=== PATIENT | male | born 2000 | race Caucasian/White ===

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

== ENCOUNTER 2022-11-22 09:50 | Emergency (ER) | payer MEDICAID ==
[2022-11-22] MEDS ORDERED: Sodium Chloride 0.9% 1000 ML 1,000 ML IV STA (10:17)
[2022-11-22] MEDS ORDERED: MORPHINE SULFATE 4 MG INJ IV ONE (10:17)
[2022-11-22] MEDS ORDERED: BENADRYL 50 MG/ML IV ONE (10:17)
[2022-11-22] MEDS ORDERED: MORPHINE SULFATE 4 MG INJ ONE ×2 (10:25→11:26)
[2022-11-22] MEDS ORDERED: BENADRYL 50 MG/ML ONE (10:25)
[2022-11-22] MEDS ORDERED: Sodium Chloride 0.9% 1000 ML 1,000 ML ONE (10:25)
[2022-11-22 10:29] LABS: Absolute Neutrophil Ct (ANC) 7.12 x10^3/uL (1.4-6.9); BASOPHIL % 0.5 % (0.0-0.4); Basophil (Absolute #) 0.05 x10^3/uL (0-0.4); Eosinophil % 2.2 % (0.00-5.0); Eosinophil (Absolute #) 0.23 x10^3/uL (0-0.5); Hematocrit 47.4 % (42-50); IMMATURE GRAN # 0.03 x10^3u/L (0.00-0.03); IMMATURE GRAN % 0.3 % (0.00-0.4); Lymphocyte (Absolute #) 2.18 x10^3/uL (1.0-4.6); Mean Cell Volume 88.6 fL (78-100); Mean Corpuscular Hemoglobin 29.9 pg (26-32); Mean Corpuscular Hgb Concent. 33.8 g/dL (32-36); Mean Platelet Volume 10.4 fL (7.5-11.0); Monocyte (Absolute #) 0.75 x10^3/uL (0.0-1.3); Monocytes % 7.2 % (0.0-12.0); Neutrophil % 68.8 % (36.0-66.0); Platelet Count 265 x10^3/uL (150-450); Red Blood Count 5.35 x10^6/uL (4.1-5.6); Red Cell Distribution Width 12.4 % (11.5-14.0); White Blood Count 10.4 x10^3/uL (4.0-10.5)
--- NOTE | 2022-11-22 10:32 | ERPHSYRPT ---
- History of Present Illness Time Seen by Provider: 11/22/22 09:52 Source: patient Exam Limitations: no limitations Patient Subjective Stated Complaint: Pt c/o of medial upper epi- gastric/abdominal pain that began 2 days ago with vomiting and diarrhea Triage Nursing Assessment: Pt brought to the ER by his mother, tachycardic, rates pain as 5/10, N&V, diarrhea, denies blood in stool, nausea today but unable to vomit, pulses normal, skin pale and warm and diaphoretic at times Physician History: Patient is here with abdominal pain. 2 days. Patient states radiating throughout. No falls or other trauma. Patient not on any medication. No history of previous abdominal surgeries, patient still has gallbladder, appe ndix. Timing/Duration: yesterday Severity: moderate Modifying Factors: Improves With: other Associated Symptoms: vomiting Allergies/Adverse Reactions: No Known Drug Allergies Allergy (Verified 11/22/22 10:25) Hx Tetanus, Diphtheria Vaccination/Date Given: Yes Hx Influenza Vaccination/Date Given: No Hx Pneumococcal Vaccination/Date Given: No Travel Risk - International Travel Have you traveled outside of the country in past 3 weeks: No - Coronavirus Screening Are you exhibiting any of the following symptoms?: Yes Symptoms: Vomiting/Diarrhea Close contact with a COVID-19 positive Pt in past 14-21 Days: No - Vaccine Status Have you recieved a Covid-19 vaccination: No - Review of Systems Constitutional: No Fever, No Chills Eyes: No Symptoms Ears, Nose, & Throat: No Symptoms Respiratory: No Cough, No Dyspnea Cardiac: No Chest Pain, No Edema, No Syncope Abdominal/Gastrointestinal: Abdominal Pain, Nausea, Vomiting, Diarrhea Genitourinary Symptoms: No Dysuria Musculoskeletal: No Back Pain, No Neck Pain Skin: No Rash Neurological: No Dizziness, No Focal Weakness, No Sensory Changes Psychological: No Symptoms Endocrine: No Symptoms All Other Systems: Reviewed and Negative - Past Medical History Pertinent Past Medical History: Yes Neurological History: Other Cardiac History: Other Respiratory History: No Pertinent History Endocrine Medical History: No Pertinent History Musculoskeletal History: No Pertinent History GI Medical History: GERD Other Medical History: concussions playing sports, 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 - Past Surgical History Past Surgical History: Yes Musculoskeletal: Orthopedic Surgery - Social History Smoking Status: Never smoker Exposure to second hand smoke: Yes Drug Use: none Patient Lives Alone: No - Nursing Vital Signs Nursing Vital Signs: Initial Vital Signs Temperature 97.3 F 11/22/22 09:54 Pulse Rate 104 H 11/22/22 09:54 Blood Pressure 129/80 11/22/22 09:54 O2 Sat by Pulse Oximetry 97 11/22/22 09:54 Pain Scale Pain Intensity 0 - Physical Exam General Appearance: no apparent distress, alert Eye Exam: PERRL/EOMI, eyes nml inspection Ears, Nose, Throat Exam: normal ENT inspection, TMs normal, pharynx normal, moist mucous membranes Neck Exam: normal inspection, non-tender, supple, full range of motion Respiratory Exam: normal breath sounds, lungs clear, No respiratory distress Cardiovascular Exam: regular rate/rhythm, normal heart sounds, normal peripheral pulses Gastrointestinal/Abdomen Exam: soft, normal bowel sounds, tenderness (Mild abdominal tenderness throughout. No rebound no guarding. ), other, No mass Back Exam: normal inspection, normal range of motion, No CVA tenderness, No vertebral tenderness Extremity Exam: normal inspection, normal range of motion, pelvis stable Neurologic Exam: alert, oriented x 3, cooperative, normal mood/affect, nml cerebellar function, nml station & gait, sensation nml, No motor deficits Skin Exam: normal color, warm, dry, No rash Lymphatic Exam: No adenopathy SpO2: 97 - Course Nursing assessment & vital signs reviewed: Yes Ordered Tests: Active Orders 24 hr Category Date Time Status IV Insertion STAT Care 11/22/22 10:17 Completed ABDOMEN AND PELVIS W CONTRAST [CT] Stat Exams 11/22/22 10:19 Completed CHEST 1 VIEW (PORTABLE) Stat Exams 11/22/22 10:18 Completed CBC W DIFF Stat Lab 11/22/22 10:23 Completed CMP Stat Lab 11/22/22 10:23 Completed CULTURE,URINE Stat Lab 11/22/22 10:28 Received LIPASE Stat Lab 11/22/22 10:23 Completed UA W/RFX UR CULTURE Stat Lab 11/22/22 10:28 Completed Medication Summary Discontinued Medications Generic Name Dose Route Start Last Admin Trade Name Freq PRN Reason Stop Dose Admin Diphenhydramine HCl 25 mg 11/22/22 10:17 11/22/22 11:21 Diphenhydramine Hcl 50 Mg/Ml Vial IV 11/22/22 10:18 25 mg STAT ONE Administration Diphenhydramine HCl Confirm 11/22/22 10:25 Diphenhydramine Hcl 50 Mg/Ml Vial Administered 11/22/22 10:26 Dose 50 mg .ROUTE .STK-MED ONE Droperidol 1.25 mg 11/22/22 10:17 11/22/22 11:22 Droperidol 5 Mg/2 Ml Vial IV 11/22/22 10:18 1.25 mg STAT ONE Administration Droperidol Confirm 11/22/22 10:25 Droperidol 5 Mg/2 Ml Vial Administered 11/22/22 10:26 Dose 5 mg .ROUTE .STK-MED ONE Sodium Chloride 1,000 mls @ 999 mls/hr 11/22/22 10:17 11/22/22 12:31 Sodium Chloride 0.9% 1000 Ml IV 11/22/22 11:17 Infused .Q1H1M STA Infusion Sodium Chloride Confirm 11/22/22 10:25 Sodium Chloride 0.9% 1000 Ml Administered 11/22/22 10:26 Dose 1,000 mls @ ud .ROUTE .STK-MED ONE Morphine Sulfate 4 mg 11/22/22 10:17 11/22/22 11:24 Morphine Sulfate 4 Mg/Ml Injection IV 11/22/22 10:18 4 mg STAT ONE Administration Morphine Sulfate Confirm 11/22/22 10:25 Morphine Sulfate 4 Mg/Ml Injection Administered 11/22/22 10:26 Dose 4 mg .ROUTE .STK-MED ONE Morphine Sulfate Confirm 11/22/22 11:26 Morphine Sulfate 4 Mg/Ml Injection Administered 11/22/22 11:27 Dose 4 mg .ROUTE .STK-MED ONE Lab/Rad Data: Laboratory Result Diagrams 11/22/22 10:23 11/22/22 10:23 Laboratory Results 11/22/22 11/22/22 11/22/22 Range/Units Unknown 10:28 10: WBC (4.0-10.5) x10^3/uL RBC (4.1-5.6) x10^6/uL Hgb (12.5-18.0) g/dL Hct (42-50) % MCV (78-100) fL MCH (26-32) pg MCHC (32-36) g/dL RDW (11.5-14.0) % Plt Count (150-450) x10^3/uL MPV (7.5-11.0) fL Gran % (36.0-66.0) % Immature Gran % (Auto) (0.00-0.4) % Nucleat RBC Rel Count (0.00-0.1) % Eos # (Auto) (0-0.5) x10^3/uL Immature Gran # (Auto) (0.00-0.03) x10^3u/L Absolute Lymphs (auto) (1.0-4.6) x10^3/uL Absolute Monos (auto) (0.0-1.3) x10^3/uL Absolute Nucleated RBC (0.00-0.01) x10^3u/L Lymphocytes % (24.0-44.0) % Monocytes % (0.0-12.0) % Eosinophils % (0.00-5.0) % Basophils % (0.0-0.4) % Absolute Granulocytes (1.4-6.9) x10^3/uL Basophils # (0-0.4) x10^3/uL Sodium 142 (137-145) mmol/L Potassium 4.5 (3.5-5.1) mmol/L Chloride 106 (98-107) mmol/L Carbon Dioxide 21 L (22-30) mmol/L Anion Gap 18.8 H (5-15) MEQ/L BUN 12 (9-20) mg/dL Creatinine 1.02 (0.66-1.25) mg/dL Estimated GFR > 60.0 ML/MIN Glucose 111 H (74-106) mg/dL Calcium 9.7 (8.4-10.2) mg/dL Total Bilirubin 0.50 (0.2-1.3) mg/dL AST 27 (17-59) U/L ALT 22 (0-50) U/L Alkaline Phosphatase 84 (38-126) U/L Serum Total Protein 8.7 H (6.3-8.2) g/dL Albumin 5.3 H (3.5-5.0) g/dL Lipase 71 (23-300) U/L Urine Color Dark Yellow (Yellow) Urine Appearance Cloudy A (Clear) Urine pH 5.0 (4.6-8.0) Ur Specific Reading >=1.030 A (1.005-1.030) Urine Protein 30 (Negative) Urine Glucose (UA) Negative (Negative) mg/dL Urine Ketones Trace A (Negative) Urine Blood Negative (Negative) Urine Nitrite Negative (Negative) Urine Bilirubin Negative (Negative) Urine Urobilinogen 1.0 A (0.2) mg/dL Ur Leukocyte Esterase Negative (Negative) U Hyaline Cast (Auto) NONE SEEN (0-2) /LPF Urine Microscopic RBC 0-2 (0-5) /HPF Urine Microscopic WBC 3-5 (0-5) /HPF Ur Epithelial Cells None Seen (None Seen) /HPF Amorphous Crystals Few A (None Seen) /HPF Urine Bacteria Moderate A (None Seen) /HPF Urine Culture Reflexed YES (NO) Influenza Type A Ag NEGATIVE (NEGATIVE) Influenza Type B Ag NEGATIVE (NEGATIVE) RSV (PCR) NEGATIVE (Negative) SARS-CoV-2 (PCR) NEGATIVE (NEGATIVE) Group A Strep Antibody NOT DETECTED (NEGATIVE) 11/22/22 Range/Units 10:23 WBC 10.4 (4.0-10.5) x10^3/uL RBC 5.35 (4.1-5.6) x10^6/uL Hgb 16.0 (12.5-18.0) g/dL Hct 47.4 (42-50) % MCV 88.6 (78-100) fL MCH 29.9 (26-32) pg MCHC 33.8 (32-36) g/dL RDW 12.4 (11.5-14.0) % Plt Count 265 (150-450) x10^3/uL MPV 10.4 (7.5-11.0) fL Gran % 68.8 H (36.0-66.0) % Immature Gran % (Auto) 0.3 (0.00-0.4) % Nucleat RBC Rel Count 0.0 (0.00-0.1) % Eos # (Auto) 0.23 (0-0.5) x10^3/uL Immature Gran # (Auto) 0.03 (0.00-0.03) x10^3u/L Absolute Lymphs (auto) 2.18 (1.0-4.6) x10^3/uL Absolute Monos (auto) 0.75 (0.0-1.3) x10^3/uL Absolute Nucleated RBC 0.00 (0.00-0.01) x10^3u/L Lymphocytes % 21.0 L (24.0-44.0) % Monocytes % 7.2 (0.0-12.0) % Eosinophils % 2.2 (0.00-5.0) % Basophils % 0.5 (0.0-0.4) % Absolute Granulocytes 7.12 H (1.4-6.9) x10^3/uL Basophils # 0.05 (0-0.4) x10^3/uL Sodium (137-145) mmol/L Potassium (3.5-5.1) mmol/L Chloride (98-107) mmol/L Carbon Dioxide (22-30) mmol/L Anion Gap (5-15) MEQ/L BUN (9-20) mg/dL Creatinine (0.66-1.25) mg/dL Estimated GFR ML/MIN Glucose (74-106) mg/dL Calcium (8.4-10.2) mg/dL Total Bilirubin (0.2-1.3) mg/dL AST (17-59) U/L ALT (0-50) U/L Alkaline Phosphatase (38-126) U/L Serum Total Protein (6.3-8.2) g/dL Albumin (3.5-5.0) g/dL Lipase (23-300) U/L Urine Color (Yellow) Urine Appearance (Clear) Urine pH (4.6-8.0) Ur Specific Reading (1.005-1.030) Urine Protein (Negative) Urine Glucose (UA) (Negative) mg/dL Urine Ketones (Negative) Urine Blood (Negative) Urine Nitrite (Negative) Urine Bilirubin (Negative) Urine Urobilinogen (0.2) mg/dL Ur Leukocyte Esterase (Negative) U Hyaline Cast (Auto) (0-2) /LPF Urine Microscopic RBC (0-5) /HPF Urine Microscopic WBC (0-5) /HPF Ur Epithelial Cells (None Seen) /HPF Amorphous Crystals (None Seen) /HPF Urine Bacteria (None Seen) /HPF Urine Culture Reflexed (NO) Influenza Type A Ag (NEGATIVE) Influenza Type B Ag (NEGATIVE) RSV (PCR) (Negative) SARS-CoV-2 (PCR) (NEGATIVE) Group A Strep Antibody (NEGATIVE) - Progress Progress: improved Progress Note: 11/22/22 10:32 differential diagnosis includes kidney stone, compression fracture, infection, UTI, triple AAA - basic labs including: CBC, lipase, CMP, UA, flu, COVID, RSV, strep - insert IV for fluids, pain meds, nausea control - consider imaging: CT ab/pelvis 11/22/22 14:32 CT shows most likely gastroenteritis. UA also shows some bacteria. However no leukocytes or nitrates. Will treat with Keflex and send a urine culture. Patient's pain completely resolved on reexam. Will need close follow-up with PCP. Return here for new or changing symptoms. Counseled pt/family regarding: lab results, diagnosis, need for follow-up, rad results Medical Desision Making - Diagnostic Testing Diagnostic Testing (additional info): Diagnostic tests were ordered,analyzed, and reviewed by me and used in my medical decision making for this patient. Radiologic studies (if ordered) were read by me initially then discussed with the radiologist . - Departure Departure Disposition: Home Clinical Impression: Bacteria in urine, Nausea and vomiting Condition: Stable Critical Care Time: No Referrals: SVITLANA CYR [Primary Care Provider] - Follow up/PCP as directed Instructions: Severe Abdominal Pain, Adult (DC) Prescriptions: Ondansetron ODT 4 MG [Zofran Odt 4 mg] 4 mg PO Q6H PRN PRN #10 tablet PRN Reason: Vomiting Cephalexin Mh 500 mg [Keflex 500 mg] 500 mg PO BID #20 cap
--- NOTE | 2022-11-22 10:37 | XRAY ---
Indication: Epigastric pain. Comparison: October 24, 2021 Portable chest demonstrates clearing previous bilateral airspace disease with now minimal left base fibrosis/scarring. Heart not enlarged. Bony thorax intact. No acute findings.
[2022-11-22 10:45] LABS: ALBUMIN 5.3 g/dL (3.5-5.0); ALKALINE PHOSPHATASE 84 U/L (38-126); ANION GAP 18.8 MEQ/L (5-15); BLOOD UREA NITROGEN 12 mg/dL (9-20); CHLORIDE 106 mmol/L (98-107); Calcium 9.7 mg/dL (8.4-10.2); Carbon Dioxide 21 mmol/L (22-30); Creatinine 1 1.02 mg/dL (0.66-1.25); EST GLOMERULAR FILTRATION RATE > 60.0 ML/MIN; Glucose 111 mg/dL (74-106); LIPASE 71 U/L (23-300); Potassium 4.5 mmol/L (3.5-5.1); SGOT/AST 27 U/L (17-59); SGPT/ALT 22 U/L (0-50); SODIUM 142 mmol/L (137-145); Total Protein 8.7 g/dL (6.3-8.2)
--- NOTE | 2022-11-22 11:32 | XRAY ---
Indication: Epigastric pain. Nausea and vomiting. Multiple contiguous axial images obtained through the abdomen and pelvis using 80 cc Isovue 370 contrast. Comparison: None Lung bases demonstrate mild dependent atelectasis at heart is not enlarged. Stomach, small bowel bowel, and colon are mild/moderate fluid distended throughout with fluid leveling, ileus versus gastroenterocolitis. No free fluid/air. Remaining liver, gallbladder, pancreas, spleen, adrenal glands, kidneys, ureters, bladder, and aorta are unremarkable. No pathologic retroperitoneal lymphadenopathy. Osseous structures intact with minimal levoscoliosis centered at L3. Impression: Fluid distended stomach, small bowel, and colon with fluid leveling. Rule out ileus versus gastroenterocolitis.
[2022-11-22 11:42] LABS: Appearance Cloudy (Clear); Bilirubin Negative (Negative); Blood Negative (Negative); Epithelial Cells None Seen /HPF (None Seen); Glucose, Urine Negative (Negative); Ketones Trace (Negative); Leukocyte Esterase Negative (Negative); Nitrite Negative (Negative); Protein,Urine Dip 30 (Negative); RBC 0-2 /HPF (0-5); Specific Gravity >=1.030 (1.005-1.030)
[2022-11-22 11:47] LABS: Bacteria Moderate /HPF (None Seen)
[2022-11-22 11:48] LABS: ADD URINE CULTURE? YES (NO); Amourphous Crystal Few /HPF (None Seen); Hyaline Casts NONE SEEN /LPF (0-2)
[2022-11-22 12:31] VITALS: PULSE 67
[2022-11-22 12:38] LABS: Group A Strep NOT DETECTED (NEGATIVE)
[2022-11-22 12:49] LABS: INFLUENZA A NEGATIVE (NEGATIVE); INFLUENZA B NEGATIVE (NEGATIVE); RESPIRATORY SYNCTIAL VIRUS NEGATIVE (Negative); SARS-CoV-2 Xpert Express NEGATIVE (NEGATIVE)
[2022-11-22 13:04] VITALS: O2SAT 97
[2022-11-22 13:09] VITALS: BP 121/72
== END 2022-11-22 13:13 | disposition home or self-care (01) ==
LOC: ED 09:50
DX: R11.2 Nausea with vomiting, unspecified (principal); R82.71 Bacteriuria; R10.9 Unspecified abdominal pain; Z28.310 Unvaccinated for COVID-19
CPT/HCPCS: 0241U; 36415; 71045; 74177; 80053; 81001; 83690; 85025; 87086; 87651; 96360; 96374; 96375; 99284; J1200; J2270

== ENCOUNTER 2023-07-13 16:51 | Emergency (ER) | payer OTHER ==
--- NOTE | 2023-07-13 16:56 | ERPHSYRPT ---
- History of Present Illness Time Seen by Provider: 07/13/23 16:56 Source: patient, family Exam Limitations: no limitations Physician History: pt caught right index tip between object and wood splitter with minor abrasion but tiny subungual heme - not suitable for drainage. and tender distal phalanx. no other complaint of injury. N/V intact. tendon fxn flex/ext distal and prox phalanges intact. tender distal phalanx. Discussed risks/benefits of x-ray and toradol and t dap update with pt and family and they wish to proceed. these are ordered; results later discussed. family is present and served as independent source for interview Hx. Occurred: just prior to arrival Method of Injury: direct blow Quality: constant, sharpness, throbbing Severity of Pain-Max: moderate Severity of Pain-Current: moderate Extremities Pain Location: 2nd finger: right Modifying Factors: Improves With: cold therapy, immobilization, movement, pain medication Associated Symptoms: none Allergies/Adverse Reactions: No Known Drug Allergies Allergy (Verified 07/13/23 18:23) Home Medications: No Reportable Medications [No Reported Medications] 07/13/23 [History] Hx Tetanus, Diphtheria Vaccination/Date Given: Yes Hx Influenza Vaccination/Date Given: No Hx Pneumococcal Vaccination/Date Given: No Travel Risk - Vaccine Status Have you recieved a Covid-19 vaccination: No - Review of Systems Constitutional: No Fever, No Chills Eyes: No Symptoms Ears, Nose, & Throat: No Symptoms Respiratory: No Cough, No Dyspnea Cardiac: No Chest Pain, No Edema, No Syncope Abdominal/Gastrointestinal: No Abdominal Pain, No Nausea, No Vomiting, No Diarrhea Genitourinary Symptoms: No Dysuria Musculoskeletal: Injury, Joint Pain, Joint Swelling, No Back Pain, No Neck Pain Skin: Other (abrasion), No Rash Neurological: No Dizziness, No Focal Weakness, No Sensory Changes Psychological: No Symptoms Endocrine: No Symptoms Hematologic/Lymphatic: No Symptoms Immunological/Allergic: No Symptoms All Other Systems: Reviewed and Negative - Past Medical History Pertinent Past Medical History: Yes Neurological History: Other Cardiac History: Other Respiratory History: No Pertinent History Endocrine Medical History: No Pertinent History Musculoskeletal History: No Pertinent History GI Medical History: GERD Other Medical History: concussions playing sports, 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 - Past Surgical History Past Surgical History: Yes Musculoskeletal: Orthopedic Surgery - Social History Smoking Status: Never smoker Exposure to second hand smoke: Yes Drug Use: none Patient Lives Alone: No - Nursing Vital Signs Nursing Vital Signs: Initial Vital Signs Temperature 97.8 F 07/13/23 17:02 Pulse Rate 83 07/13/23 17:02 Respiratory Rate 20 07/13/23 17:02 Blood Pressure 144/89 07/13/23 17:02 O2 Sat by Pulse Oximetry 99 07/13/23 17:02 Pain Scale Pain Intensity 6 - Physical Exam General Appearance: no apparent distress, alert Eyes, Ears, Nose, Throat Exam: moist mucous membranes Neck Exam: non-tender, supple Cardiovascular/Respiratory Exam: chest non-tender, normal breath sounds, regular rate/rhythm, no respiratory distress Abdominal Exam: non-tender, No guarding Back Exam: normal inspection, No vertebral tenderness Shoulder Exam: normal inspection, non-tender, no evidence of injury, normal ROM Elbow/Forearm Exam: normal inspection, non-tender, no evidence of injury, normal ROM Wrist Exam: normal inspection, non-tender, no evidence of injury, normal ROM Hand Exam: normal ROM, abrasions, bone tenderness, nail injury, soft tissue tenderness DTR - Upper Extremity Exam: bicep (R): 2+, bicep (L): 2+, tricep (R): 2+, tricep (L): 2+ Neuro/Tendon Exam: normal sensation, normal motor functions, normal tendon functions, no evidence tendon injury Mental Status Exam: alert, oriented x 3, cooperative Skin Exam: normal color, warm, dry SpO2 Interpretation: normal SpO2: 99 O2 Delivery: Room Air Procedures - Splinting Location of Splint: Right Type of Splint: Foam Pad Finger Splint Splint Applied By: ED Nurse Pre-Proc Neuro Vasc Exam: normal Post-Proc Neuro Vasc Exam: neurovascular intact, unchanged from pre-exam - Course Nursing assessment & vital signs reviewed: Yes - Radiology Exams Right Hand X-ray Interpretation: Reviewed by me, Non-displaced Fracture (distal tuft right index) Ordered Tests: Active Orders 24 hr Category Date Time Status HAND (MINIMUM 3 VIEWS) Stat Exams 07/13/23 17:23 Taken Medication Summary Discontinued Medications Generic Name Dose Route Start Last Admin Trade Name Freq PRN Reason Stop Dose Admin Diphtheria/Tetanus/Acell Pertussis 0.5 ml 07/13/23 17:25 07/13/23 17:58 Tdap --Diph,Pertuss(Acell),Tet Vac/Pf 0.5 Ml Vial IM 07/13/23 17:26 0.5 ml .ONCE ONE Administration Diphtheria/Tetanus/Acell Pertussis Confirm 07/13/23 17:52 Tdap --Diph,Pertuss(Acell),Tet Vac/Pf 0.5 Ml Vial Administered 07/13/23 17:53 Dose 0.5 ml IM .STK-MED ONE Ketorolac Tromethamine 60 mg 07/13/23 17:23 07/13/23 17:57 Ketorolac Tromethamine 30 Mg/Ml Inj IM 07/13/23 17:24 60 mg STAT ONE Administration Ketorolac Tromethamine Confirm 07/13/23 17:52 Ketorolac Tromethamine 30 Mg/Ml Inj Administered 07/13/23 17:53 Dose 60 mg .ROUTE .STK-MED ONE - Progress Progress: improved, re-examined Progress Note: 07/13/23 19:06 discussed pain meds and pt prefers to try without narcs at this time. Counseled pt/family regarding: diagnosis, need for follow-up, rad results Medical Desision Making - Independent Historian Additional History obtained from: Family - Discussion of managment Reviewed:: Test results, Need for additional workup Agreed on:: Treatment plan, need for follow-up - Diagnostic Testing Diagnostic test were ordered, analyzed, and reviewed by me: Yes Radiological Interpretation: Reviewed by me - Risk of complications The pt has a mod risk of morbidity or mortality based on: Need for prescription drug management - Departure Departure Disposition: Home Clinical Impression: nondisplaced Fx distal tuft right index Condition: Good Critical Care Time: No Referrals: SVITLANA CYR [Primary Care Provider] - Follow up/PCP as directed Instructions: Finger Fracture (DC) Additional Instructions: follow-up blood pressure with your Dr. and to recheck your finger fracture in case additional interventions such as drilling the nail are needed. the fingernail will probably eventual come off and regrow since the nail bed has been damaged as well. keep elevated and use ice. return meantime if not improving or other concerns. use tylenol and alleve.
[2023-07-13 17:13] VITALS: TEMP 97.8; O2SAT 99
[2023-07-13] MEDS ORDERED: TORAdol 30 mg Injection IM ONE (17:23)
[2023-07-13] MEDS ORDERED: Adacel Vial IM ONE ×2 (17:25→17:52)
[2023-07-13] MEDS ORDERED: TORAdol 30 mg Injection ONE (17:52)
[2023-07-13 19:18] VITALS: BP 135/78; PULSE 81; RESP 18
--- NOTE | 2023-07-13 20:30 | XRAY ---
Indication: Pain following trauma. Comparison: None 3 view right hand demonstrates tiny nondisplaced 2nd finger tuft fracture. No other bony, articular, or soft tissue abnormalities.
== END 2023-07-13 19:21 | disposition home or self-care (01) ==
LOC: ED 16:51
DX: S62.660A Nondisplaced fracture of distal phalanx of right index finger, initial encounter for closed fracture (principal); W23.0XXA Caught, crushed, jammed, or pinched between moving objects, initial encounter; Z28.310 Unvaccinated for COVID-19; Z23 Encounter for immunization
CPT/HCPCS: 73130; 90471; 90715; 96372; 99283; J1885

== ENCOUNTER 2023-08-20 16:18 | Emergency (ER) | payer OTHER ==
[2023-08-20] MEDS ORDERED: XYLOCAINE 1% HCL 20 ML MDV IJ ONE (16:19)
--- NOTE | 2023-08-20 16:26 | ERPHSYRPT ---
- History of Present Illness Time Seen by Provider: 08/20/23 16:26 Source: patient Exam Limitations: no limitations Physician History: This is a 22-year-old right-handed white male patient who states that his tetanus status is up-to-date and punched through a window causing superficial laceration to right hand digits 4 and 5 dorsally and the volar aspect of his right wrist. There is tissue loss without evidence of foreign body or bleeding to his digit lacerations. Patient's tendon functions are intact. He is neurovascularly intact. Timing/Duration: today Quality: painful Severity: mild Location: hands (To moderate right hand digits 4 and 5 dorsally and volar right wrist) Associated Symptoms: denies symptoms Allergies/Adverse Reactions: No Known Drug Allergies Allergy (Verified 07/13/23 18:23) Hx Tetanus, Diphtheria Vaccination/Date Given: Yes Hx Influenza Vaccination/Date Given: No Hx Pneumococcal Vaccination/Date Given: No Travel Risk - International Travel Have you traveled outside of the country in past 3 weeks: No - Coronavirus Screening Are you exhibiting any of the following symptoms?: No Close contact with a COVID-19 positive Pt in past 14-21 Days: No - Vaccine Status Have you recieved a Covid-19 vaccination: No - Review of Systems Constitutional: No Symptoms Eyes: No Symptoms Ears, Nose, & Throat: No Symptoms Respiratory: No Symptoms Cardiac: No Symptoms Abdominal/Gastrointestinal: No Symptoms Genitourinary Symptoms: No Symptoms Musculoskeletal: Injury (Right hand and wrist) Skin: Other (Laceration digits 4 and 5 right hand and volar aspect right wrist) Neurological: No Symptoms Psychological: No Symptoms Endocrine: No Symptoms Hematologic/Lymphatic: No Symptoms Immunological/Allergic: No Symptoms All Other Systems: Reviewed and Negative - Past Medical History Pertinent Past Medical History: Yes Neurological History: Other ENT History: No Pertinent History Cardiac History: Other Respiratory History: No Pertinent History Endocrine Medical History: No Pertinent History Musculoskeletal History: No Pertinent History GI Medical History: GERD Other Medical History: concussions playing sports, 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 - Past Surgical History Past Surgical History: Yes Musculoskeletal: Orthopedic Surgery - Social History Smoking Status: Never smoker How long have you smoked: 2 years Exposure to second hand smoke: Yes Drug Use: none Patient Lives Alone: No - Nursing Vital Signs Nursing Vital Signs: Initial Vital Signs Temperature 98.1 F 08/20/23 16:20 Pulse Rate 90 08/20/23 16:20 Respiratory Rate 18 08/20/23 16:20 Blood Pressure 120/62 08/20/23 16:20 O2 Sat by Pulse Oximetry 97 08/20/23 16:20 Pain Scale Pain Intensity 8 - Physical Exam General Appearance: no apparent distress, alert, anxiety Eye Exam: PERRL/EOMI, eyes nml inspection Ears, Nose, Throat Exam: normal ENT inspection, moist mucous membranes Neck Exam: normal inspection, non-tender, supple, full range of motion Respiratory Exam: airway intact, No chest tenderness, No respiratory distress Gastrointestinal/Abdomen Exam: No tenderness Rectal Exam: not done Back Exam: normal inspection, normal range of motion, No CVA tenderness, No vertebral tenderness Extremity Exam: lacerations (Approximately 4 to 5 cm superficial skin lacerations volar aspect right wrist. There is also deep abrasions/laceration with tissue loss to the dorsal aspect of digits 4 and 5 on the right hand. There are no foreign bodies present. Patient is neurovascularly intact. Tendon function is normal), tenderness (Tenderness in the same sites as described under lacerations) Neurologic Exam: alert, oriented x 3, cooperative, cosmetics demonstrator II-XII nml as tested, normal mood/affect, nml cerebellar function, nml station & gait Skin Exam: laceration (See above) Lymphatic Exam: No adenopathy SpO2 Interpretation: normal O2 Delivery: Room Air Procedures - Laceration/Wound Repair Right Volar Wrist Time of Procedure: 17:40 Wound Location: Right, wrist (Volar aspect) Wound Length (cm): 5 Wound's Depth, Shape: superficial, linear Wound Explored: clean (Wound explored to the base. No foreign body noted. Exploration performed in a bloodless field) Irrigated: Yes Hibiclens Prep: Yes Anesthesia: 1% Lidocaine Volume Anesthetic (ccs): 5 Wound Repaired With: [place] (13 demetra placed to repair right wrist laceration) Progress: 08/20/23 17:52 No suture repair of lacerations necessary in the dorsal aspect of right fourth and fifth digit. There is tissue loss present that is superficial. This was discussed in detail with the patient. - Course Nursing assessment & vital signs reviewed: Yes Ordered Tests: Active Orders 24 hr Category Date Time Status HAND (MINIMUM 3 VIEWS) Stat Exams 08/20/23 16:47 Completed WRIST (MIN 3 VIEWS) Stat Exams 08/20/23 16:47 Completed - Progress Progress: improved, pain not gone completely, re-examined Progress Note: 08/20/23 17:23 This patient's medical issue is 1 of low complexity. Level complexity the work- up performed based on review the patient's past medical history, review the patient's medication list, review of the patient's drug allergy list, history of present illness and physical findings on examination. This patient's medical work-up includes x-ray of right wrist and right hand. We will also surgically repair the right wrist laceration site. The patient does not require repair of the laceration/deep abrasions to the right fourth and fifth digits dorsally. These will heal by secondary intention. X-ray of the right wrist shows no acute fracture or dislocation. There is no evidence of foreign body. This was interpreted by the radiologist and I reviewed the impression. X-ray of the right hand shows a healing old tuft fracture second digit. No acute fracture or dislocation. No evidence of foreign body. This study was interpreted by the radiologist and I reviewed the impression. Medical Desision Making - Diagnostic Testing Diagnostic test were ordered, analyzed, and reviewed by me: Yes Radiological Interpretation: Reviewed by me, Teleradiologist Report - Risk of complications The pt has a mod risk of morbidity or mortality based on: Need for prescription drug management - Departure Departure Disposition: Home Clinical Impression: Laceration of right hand, Laceration of right wrist Condition: Stable Critical Care Time: No Referrals: SVITLANA CYR [Primary Care Provider] - Follow up/PCP as directed Additional Instructions: Keep the pressure dressing in place until the evening of 08/21/2023. At that time, you may remove the top dressing and wash all the laceration sites with soap and water covering with antibiotic ointment and then replacing a dressing. Staple removal in approximately 8 to 10 days. Take your antibiotics and pain medication as prescribed. Call the hand surgeon tomorrow morning, 08/21/2023, to obtain a follow-up appointment for further evaluation and management of your hand skin abrasion/lacerations. Prescriptions: Hydrocodone/APAP 5/325 [Start 5/325 mg] 1 each PO Q8H PRN PRN #6 tablet MDD 3 PRN Reason: Pain Cephalexin Mh 500 mg [Keflex 500 mg] 500 mg PO TID #21 cap
[2023-08-20 16:28] VITALS: RESP 18
[2023-08-20 16:29] VITALS: BP 120/62; PULSE 90; TEMP 98.1; O2SAT 97
--- NOTE | 2023-08-20 17:21 | XRAY ---
Indication: Laceration. Comparison: July 13, 2023 3 portable views right hand demonstrates interval healing nondisplaced 2nd tuft fracture. No other bony, articular, or soft tissue abnormalities.
--- NOTE | 2023-08-20 17:21 | XRAY ---
Indication: Laceration. Comparison: None 3 portable views right wrist demonstrates anterior laceration. No other bony, articular, or soft tissue abnormalities.
[2023-08-20] MEDS ORDERED: BACIGUENT PACKET ONE (17:56)
== END 2023-08-20 18:18 | disposition home or self-care (01) ==
LOC: ED 16:18
DX: S61.511A Laceration without foreign body of right wrist, initial encounter (principal); S61.214A Laceration without foreign body of right ring finger without damage to nail, initial encounter; S61.216A Laceration without foreign body of right little finger without damage to nail, initial encounter; W25.XXXA Contact with sharp glass, initial encounter; W22.8XXA Striking against or struck by other objects, initial encounter; Z28.310 Unvaccinated for COVID-19
CPT/HCPCS: 12002; 73110; 73130; 99282; A9270-GY

== ENCOUNTER 2025-06-23 08:10 | Emergency (ER) | payer SELFPAY ==
[2025-06-23 08:31] VITALS: RESP 14; TEMP 98.3
--- NOTE | 2025-06-23 08:46 | ERPHSYRPT ---
- History of Present Illness Patient Subjective Stated Complaint: patient complains of mid abdominal pain, complains of nausea, had one episode of vomiting yesterday Triage Nursing Assessment: patient able to ambulate into ed without complication, patient alert and oriented x4, patient complains of left side pain 9/10 and right side pain 5/10, patient's abdomen soft/non distended, bowel sounds active x 4 quadrants, abdomen tender upon palpation, skin n/w/d, denies urinary frequency, dysuria, patient's last BM 06/22/25 without any noted abnormalities Physician History: Patient presents with low abdominal pain. He reports it began yesterday when he was driving. He states he has some vague right-sided discomfort that is now localized to the left lower quadrant. Denies any fever or chills. Has had normal appetite. States he has a soreness across his left lower quadrant. Has had normal bowel movements. Vomited twice. No urinary symptoms. Quality: dullness Abdominal Pain Onset Location: [facility]Q Allergies/Adverse Reactions: No Known Drug Allergies Allergy (Verified 06/23/25 08:22) Hx Tetanus, Diphtheria Vaccination/Date Given: Yes Hx Influenza Vaccination/Date Given: No Hx Pneumococcal Vaccination/Date Given: No Travel Risk - International Travel Have you traveled outside of the country in past 3 weeks: No - Emerging Infectious Disease Are you exhibiting symptoms associated with any current EIDs: No - Review of Systems Constitutional: No Fever, No Chills Eyes: No Symptoms Ears, Nose, & Throat: No Symptoms Respiratory: No Cough, No Dyspnea Cardiac: No Chest Pain, No Edema, No Syncope Abdominal/Gastrointestinal: Vomiting, No Abdominal Pain, No Nausea, No Diarrhea, No Constipation, No Hematemesis Genitourinary Symptoms: No Dysuria, No Urinary Retention Musculoskeletal: No Back Pain, No Neck Pain Skin: No Rash Neurological: No Dizziness, No Focal Weakness, No Sensory Changes Psychological: No Symptoms Endocrine: No Symptoms All Other Systems: Reviewed and Negative - Past Medical History Pertinent Past Medical History: Yes Neurological History: Other ENT History: No Pertinent History Cardiac History: Hypertension, Other Respiratory History: No Pertinent History Endocrine Medical History: No Pertinent History Musculoskeletal History: No Pertinent History GI Medical History: GERD History: No Pertinent History Psycho-Social History: No Pertinent History Male Reproductive Disorders: No Pertinent History Other Medical History: concussions playing sports, 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, AV block - Past Surgical History Past Surgical History: Yes Neuro Surgical History: No Pertinent History Cardiac: No Pertinent History Respiratory: No Pertinent History Gastrointestinal: No Pertinent History Genitourinary: No Pertinent History Musculoskeletal: Orthopedic Surgery Male Surgical History: No Pertinent History Other Surgical History: finger, knee - Social History Smoking Status: Current every day smoker Exposure to second hand smoke: Yes Drug Use: none - Social Determinants of Health Will the patient participate in the screening: Yes Do you worry about a steady place to live?: No Do you have any problems with any of the following?: No known problems In the past 12 months,have you had to go without utilities?: No Transportation Issues: No Has anyone in your support network made you feel unsafe?: No Have you or anyone in your house had to go w/o enough food: No - Nursing Vital Signs Nursing Vital Signs: Initial Vital Signs Temperature 98.3 F 06/23/25 08:10 Pulse Rate 92 H 06/23/25 08:10 Respiratory Rate 14 06/23/25 08:10 Blood Pressure 155/95 06/23/25 08:10 O2 Sat by Pulse Oximetry 95 06/23/25 08:10 Pain Scale Pain Intensity 8 - Physical Exam General Appearance: no apparent distress, alert Eye Exam: PERRL/EOMI, eyes nml inspection Ears, Nose, Throat Exam: normal ENT inspection, pharynx normal, moist mucous membranes Neck Exam: normal inspection, non-tender, supple, full range of motion Respiratory Exam: normal breath sounds, lungs clear, No respiratory distress Cardiovascular Exam: regular rate/rhythm, normal heart sounds Gastrointestinal/Abdomen Exam: soft, other (Rightly obese, soft, reports some generalized soreness across left lower quadrant with deep palpation only. No guarding or rebound), No tenderness, No mass Back Exam: normal inspection, normal range of motion, No CVA tenderness, No vertebral tenderness Extremity Exam: normal inspection, normal range of motion, pelvis stable Neurologic Exam: alert, oriented x 3, cooperative, normal mood/affect, nml cerebellar function, sensation nml, No motor deficits Skin Exam: normal color, warm, dry SpO2: 95 Ordered Tests: Active Orders 24 hr Category Date Time Status ABDOMEN AND PELVIS W CONTRAST [CT] Stat Exams 06/23/25 08:46 Completed CBC W DIFF Stat Lab 06/23/25 09:00 Completed CMP Stat Lab 06/23/25 09:00 Completed LIPASE Stat Lab 06/23/25 09:00 Completed UA W/RFX UR CULTURE Stat Lab 06/23/25 08:47 Completed Medication Summary Discontinued Medications Generic Name Dose Route Start Last Admin Trade Name Britt PRN Reason Stop Dose Admin Ketorolac Tromethamine 15 mg 06/23/25 10:08 06/23/25 10:25 Ketorolac Tromethamine 30 Mg/Ml Inj IV 06/23/25 10:09 15 mg STAT ONE Administration Ketorolac Tromethamine Confirm 06/23/25 10:24 Ketorolac Tromethamine 30 Mg/Ml Inj Administered 06/23/25 10:25 Dose 30 mg .ROUTE .STK-MED ONE Lab/Rad Data: Laboratory Result Diagrams 06/23/25 09:00 06/23/25 09:00 Laboratory Results 06/23/25 06/23/25 06/23/25 Range/Units 09:00 09:00 08:47 WBC 13.7 H (4.23-9.07) x10^3/uL RBC 4.71 (4.63-6.08) x10^6/uL Hgb 14.0 (13.7-17.5) g/dL Hct 42.3 (40.1-51.0) % MCV 89.8 (79.0-92.2) fL MCH 29.7 (25.7-32.2) pg MCHC 33.1 (32.3-36.5) g/dL RDW 12.1 (11.6-14.4) % Plt Count 246 (163-337) x10^3/uL MPV 10.4 (9.4-12.4) fL Gran % 66.2 (34.0-67.9) % Immature Gran % (Auto) 0.6 H (0.001-0.429) % Nucleat RBC Rel Count 0.0 (0.00-0.2) % Eos # (Auto) 0.28 (0.04-0.54) x10^3/uL Immature Gran # (Auto) 0.08 H (0.001-0.031) x10^3u/L Absolute Lymphs (auto) 2.79 (1.32-3.57) x10^3/uL Absolute Monos (auto) 1.39 H (0.30-0.82) x10^3/uL Absolute Nucleated RBC 0.00 (0.00-0.012) x10^3u/L Lymphocytes % 20.4 L (21.8-53.1) % Monocytes % 10.2 (5.3-12.2) % Eosinophils % 2.0 (0.8-7.0) % Basophils % 0.6 (0.2-1.2) % Absolute Granulocytes 9.06 H (1.78-5.38) x10^3/uL Basophils # 0.08 (0.01-0.08) x10^3/uL Sodium 138 (135-145) mmol/L Potassium 4.1 (3.5-5.1) mmol/L Chloride 104 (98-107) mmol/L Carbon Dioxide 24 (22-30) mmol/L Anion Gap 14.2 (5-15) MEQ/L BUN 13 (9-20) mg/dL Creatinine 1.03 (0.66-1.25) mg/dL Estimated GFR 104.7 ML/MIN Glucose 111 H (74-106) mg/dL Calcium 9.5 (8.4-10.2) mg/dL Total Bilirubin 0.30 (0.2-1.3) mg/dL AST 24 (17-59) U/L ALT 35 (0-50) U/L Alkaline Phosphatase 64 (38-126) U/L Serum Total Protein 7.7 (6.3-8.2) g/dL Albumin 4.6 (3.5-5.0) g/dL Lipase 48 (23-300) U/L Urine Color Yellow (Yellow) Urine Appearance Clear (Clear) Urine pH 6.5 (4.6-8.0) Ur Specific Clemons 1.020 (1.005-1.030) Urine Protein Negative (Negative) Urine Glucose (UA) Negative (Negative) mg/dL Urine Ketones Negative (Negative) Urine Blood Negative (Negative) Urine Nitrite Negative (Negative) Urine Bilirubin Negative (Negative) Urine Urobilinogen 0.2 (0.2) mg/dL Ur Leukocyte Esterase Negative (Negative) U Hyaline Cast (Auto) NONE SEEN (0-2) /LPF Urine Microscopic RBC 0-2 (0-5) /HPF Urine Microscopic WBC 0-2 (0-5) /HPF Ur Epithelial Cells None Seen (None Seen) /HPF Urine Bacteria None Seen (None Seen) /HPF Urine Culture Reflexed NO (NO) - Progress Progress Note: 06/23/25 11:34 CT scan returned with evidence of acute diverticulitis [id number] CT/ABDOMEN AND PELVIS W/0 CONTRAS CLINICAL HISTORY: ABD pain; constipation 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 TECHNIQUE: Contiguous axial images were obtained from the level of the diaphragm to the pubic symphysis without intravenous or oral contrast. Coronal and sagittal reconstructions were likewise performed and indicated to increase the sensitivity for detecting clinically relevant pathology. CT scan was performed according to ALARA (as low as reasonably achievable). FINDINGS: Large rolling hiatus hernia. Evidence of left mastectomy. Evaluation of the abdominal and pelvic visceral organs is limited without intravenous contrast. The unenhanced liver, spleen, pancreas, and adrenal glands are grossly unremarkable. Few hypodense lesions are noted in right lobe of liver - appears benign/ could be Cyst (Advice: Triphasic study correlation). Status post-cholecystectomy. The kidneys are normal in size and attenuation without obvious calcification. There is no hydronephrosis or perinephric stranding. The ureters are normal in caliber. No adenopathy or fluid collections are seen. No evidence of focal or diffuse bowel wall thickening or evidence of bowel obstruction is seen. No imaging evidence of appendicitis. The aorta is normal in caliber. The urinary bladder is normal in contour. Pelvic viscera are grossly unremarkable. Evidence of multiple sclerotic/osteolytic lesions are noted involving visualized all bones, including spine, visualized pelvic bones and femora- possibility of marrow infiltrative disease /could be metastasis - clinical correlation suggested. IMPRESSION: Evidence of multiple sclerotic/osteolytic lesions are noted involving visualized all bones, including spine, visualized pelvic bones and femora- possibility of marrow infiltrative disease /could be metastasis - clinical correlation suggested.-stable. Few hypodense lesions are noted in right lobe of liver - appears benign/ could be Cyst (Advice: Triphasic study correlation).-stable. No other new interval abnormality since prior study. Medical Desision Making - Diagnostic Testing Radiological Interpretation: Other (Reviewed by radiologist as acute diverticulitis without perforation) - Departure Departure Disposition: Home Clinical Impression: Acute diverticulitis Condition: Good Critical Care Time: No Referrals: LASHAUN DE LA CRUZ NP [Primary Care Provider, [facility]] - Follow up/PCP as directed Instructions: Diverticulitis Additional Instructions: Rest at home until you feel improved the next 24 to 48 hours. Take the antibiotic as directed. If you develop worsening pain fever inability keep down fluids or any concerns return for recheck.You need to arrange primary care follow-up after symptoms have resolved for outpatient monitoring Prescriptions: Amox Tr/Potass Clav. 875 mg [Augmentin 875-125 Tablet] 1 each PO BID 14 Days #28 tablet
[2025-06-23 09:14] LABS: BASOPHIL % 0.6 % (0.2-1.2); Basophil (Absolute #) 0.08 x10^3/uL (0.01-0.08); Eosinophil (Absolute #) 0.28 x10^3/uL (0.04-0.54); Hematocrit 42.3 % (40.1-51.0); Hemoglobin 14.0 g/dL (13.7-17.5); IMMATURE GRAN # 0.08 x10^3u/L (0.001-0.031); IMMATURE GRAN % 0.6 % (0.001-0.429); Lymphocyte (Absolute #) 2.79 x10^3/uL (1.32-3.57); Mean Corpuscular Hemoglobin 29.7 pg (25.7-32.2); Mean Corpuscular Hgb Concent. 33.1 g/dL (32.3-36.5); Monocyte (Absolute #) 1.39 x10^3/uL (0.30-0.82); NUCLEATED RBC # 0.00 x10^3u/L (0.00-0.012); NUCLEATED RBC % 0.0 % (0.00-0.2); Platelet Count 246 x10^3/uL (163-337); Red Blood Count 4.71 x10^6/uL (4.63-6.08); White Blood Count 13.7 x10^3/uL (4.23-9.07)
[2025-06-23 09:22] LABS: Glucose, Urine Negative (Negative); Protein,Urine Dip Negative (Negative); RBC 0-2 /HPF (0-5); WBC 0-2 /HPF (0-5)
[2025-06-23 10:02] LABS: Calcium 9.5 mg/dL (8.4-10.2); Carbon Dioxide 24.0 mmol/L (22-30); Creatinine 1 1.03 mg/dL (0.66-1.25); EST GLOMERULAR FILTRATION RATE 104.7 ML/MIN; Glucose 111.0 mg/dL (74-106); Potassium 4.1 mmol/L (3.5-5.1); SGOT/AST 24.0 U/L (17-59); SGPT/ALT 35.0 U/L (0-50); Total Protein 7.7 g/dL (6.3-8.2)
[2025-06-23] MEDS ORDERED: TORAdol 30 mg Injection ONE (10:24)
[2025-06-23] MEDS: TORAdol 30 mg Injection IV ONE (10:25)
--- NOTE | 2025-06-23 11:26 | XRAY ---
CLINICAL HISTORY: Abdominal pain left lower quadrant COMPARISON: CT dated 11/22/2022. TECHNIQUE: Contrast-enhanced CT of the abdomen and pelvis was performed using the following protocol: axial images and reconstructed coronal and sagittal images. Intravenous contrast was administered. One of the following dose reduction techniques was utilized for this examination: automated exposure control, adjustment of the mA and/or kV according to patient size, and use of iterative reconstruction. FINDINGS: Abdomen: Liver: The liver is enlarged, measuring 21 cm, with normal shape and fatty density, and shows areas of focal fat sparing. No focal lesions, cysts, or masses are identified. The hepatic vasculature and biliary ducts are unremarkable. Gallbladder and Biliary System: The gallbladder is partially contracted. No pericholecystic fluid or gallstones are identified. The common bile duct is normal in caliber without dilation. Pancreas: The pancreatic head, body, and tail are visualized and appear normal in size and density. No pancreatic masses or calcifications are noted. The pancreatic duct is not dilated. Spleen: The spleen is normal in size, shape, and density. No splenic lesions or masses are identified. A tiny splenic granuloma is present at the upper pole. Appendix: The appendix is normal in size, without periappendiceal fat stranding and without an appendicolith. No evidence of appendiceal abscess or perforation. Kidneys and Adrenal Glands: Both kidneys are normal in size, shape, and position. Cortical thickness is within normal limits. No renal calculi or hydronephrosis are present. The adrenal glands are unremarkable, with no evidence of masses or hyperplasia. Pelvis: Urinary Bladder: The urinary bladder is normal in contour and wall thickness. No intraluminal lesions are identified. Prostate: The prostate is normal in size and contour. No focal lesions or masses are identified. Seminal Vesicles: The seminal vesicles are normal in size and appearance. No abnormalities are noted. Peritoneal and Retroperitoneal Structures: Tiny paraaortic lymph nodes are present. No lymphadenopathy is noted. Bowel: Multiple scattered colonic diverticula are seen. A 26 x 25 mm thick-walled diverticulum is seen arising from the distal descending colon in the left iliac fossa, with an enhancing wall, containing debrinous contents, and with significant surrounding fat stranding. Pericolonic localized fluid is also seen. Focal increased wall thickening of the descending colon is also seen, with a maximum wall thickness of 12 mm. No evidence of bowel obstruction. Bones and Soft Tissues: The pelvic bones and soft tissues are unremarkable. Mild levoscoliosis of the lumbar spine is present. No fractures or abnormal masses are identified. The lung bases show a few bibasilar atelectatic bands, stable. IMPRESSION: 1. Findings of acute diverticulitis with pericolonic fat stranding and pericolonic fluid. Interval new. 2. Fatty hepatomegaly. Electronically Signed by: Junaid Tarango MD. (06/23/2025 11:23:53 EDT)
[2025-06-23 11:38] VITALS: O2SAT 95
[2025-06-23 11:47] VITALS: BP 118/59; PULSE 94
== END 2025-06-23 11:48 | disposition home or self-care (01) ==
LOC: ED 08:10
DX: K57.92 Diverticulitis of intestine, part unspecified, without perforation or abscess without bleeding (principal); R10.32 Left lower quadrant pain; I10 Essential (primary) hypertension; Z79.899 Other long term (current) drug therapy; Z72.0 Tobacco use